=== PATIENT | male | born 1970 | race Caucasian/White ===

== ENCOUNTER 2024-02-25 02:36 | Observation (INO) | payer OTHER ==
[~2024-02-25] VITALS: Ht 167.6 cm; Wt 91.2 kg
[2024-02-25] MEDS: MECLIZINE 25 MG TABLET PO ONE (03:17)
[2024-02-25] MEDS: hydrALAZINE 20MG/ML 1ML VIAL IV ONE (03:18)
[2024-02-25 03:27] LABS: BASO # 0.1 10^3/uL (0.0-0.2); BASO % 0.6 % (0.0-1.0); EOS # 0.2 10^3/uL (0.0-0.5); EOS % 2.4 % (0.0-3.0); HEMATOCRIT 46.5 % (42.0-52.0); HEMOGLOBIN 14.9 g/dl (13.5-17.5); LYMPH # 1.6 10^3/uL (1.5-5.0); LYMPH % 19.8 % (24.0-44.0); MEAN CORPUSCULAR VOLUME 84.2 fl (80.0-96.0); MONO # 0.7 10^3/uL (0.0-0.8); MONO % 8.6 % (2.0-8.0); NEUTROPHILS # 5.6 10^3/uL (1.5-8.5); NEUTROPHILS % 68.5 % (36.0-66.0); PLATELET COUNT, AUTOMATED 292 10^3/uL (150-450); RED BLOOD COUNT 5.52 10^6/uL (4.30-6.10); WHITE BLOOD COUNT 8.2 10^3/uL (4.0-10.0)
[2024-02-25 03:48] LABS: LIPASE 52 U/L (12-53)
[2024-02-25 03:51] LABS: ALBUMIN 3.5 G/DL (3.2-5.2); ALKALINE PHOSPHATASE 127 U/L (46-116); ALT/SGPT 15 U/L (7.0-40); AST/SGOT 13 U/L (<34); BILIRUBIN,DIRECT 0.2 MG/DL (<0.4); BILIRUBIN,TOTAL 0.5 MG/DL (0.3-1.2); BLOOD UREA NITROGEN 20 MG/DL (9-23); CALCIUM LEVEL 8.9 MG/DL (8.5-10.1); CARBON DIOXIDE LEVEL 28 MMOL/L (20-31); CHLORIDE LEVEL 104 MMOL/L (98-107); CK-MB VALUE MASS 1.8 NG/ML (<3.6); GLOMERULAR FILTRATION RATE > 60.0 (>56); GLUCOSE, FASTING 124 MG/DL (60-100); POTASSIUM SERUM 3.6 MMOL/L (3.5-5.1); SODIUM LEVEL 139 MMOL/L (136-145); TOTAL PROTEIN 7.2 G/DL (5.7-8.2)
[2024-02-25] MEDS: LABETALOL 100MG/20ML VIAL IV STA (04:12)
[2024-02-25 04:20] LABS: CPK CREATINE PHOSPHOKINASE 91 U/L (46-171); MB/CK RELATIVE INDEX 1.97 (< OR =4)
[2024-02-25] MEDS ORDERED: NORV5TAB PO (05:38)
[2024-02-25] MEDS ORDERED: MECL-86 PO (05:38)
[2024-02-25 05:53] LABS: CK-MB VALUE MASS 1.8 NG/ML (<3.6); MB/CK RELATIVE INDEX 2.04 (< OR =4)
[2024-02-25] MEDS ORDERED: ACETAMINOPHEN TAB 650MG DOSE (2X325MG) PO PRN (06:05)
[2024-02-25] MEDS ORDERED: MECLIZINE 25 MG TABLET PO PRN (06:05)
[2024-02-25] MEDS ORDERED: GLUCAGON INJ 1MG VIAL SC PRN (06:25)
[2024-02-25] MEDS ORDERED: DEXTROSE 50% 50ML SYRINGE IV PRN (06:25)
[2024-02-25] MEDS ORDERED: GLUCOSE 4 GM CHEW PO PRN (06:25)
[2024-02-25] MEDS: LORazepam 1 MG TAB PO ONE (06:49)
[2024-02-25] MEDS: METOPROLOL TART 25 MG TABLET PO ONE (06:50)
[2024-02-25] MEDS: ASPIRIN 81MG CHEW TABLET PO SCH (06:50)
[2024-02-25] MEDS: INSULIN LISPRO (NovoLOG) PER UNIT SC SCH (07:30)
[2024-02-25] MEDS ORDERED: HOME MED LIST COMPLETE! XX SCH (08:10)
[2024-02-25] MEDS: hydroCHLOROthiazide 12.5 MG CAPSULE PO SCH (09:04)
[2024-02-25 12:53] VITALS: BP 138/81; O2SAT 95
[2024-02-25 14:00] VITALS: BP 155/87; TEMP 97.2; O2SAT 95
[2024-02-25] MEDS: METOPROLOL TART 25 MG TABLET PO SCH (20:45)
[2024-02-26 06:00] VITALS: BP 156/83; TEMP 98.1; O2SAT 95
[2024-02-26 06:32] LABS: BLOOD UREA NITROGEN 16 MG/DL (9-23); CALCIUM LEVEL 9.2 MG/DL (8.5-10.1); CARBON DIOXIDE LEVEL 28 MMOL/L (20-31); CHLORIDE LEVEL 105 MMOL/L (98-107); CHOLESTEROL LEVEL 163 MG/DL (<200); CHOLESTEROL RISK RATIO 5.24 (<5); CREATININE FOR GFR 0.99 MG/DL (0.70-1.30); GLOMERULAR FILTRATION RATE > 60.0 (>56); GLUCOSE, FASTING 130 MG/DL (60-100); HDL CHOLESTEROL 31.1 MG/DL (>40); LDL CHOLESTEROL 115.1 MG/DL (<100); NON-HDL-C 131.9 MG/DL; POTASSIUM SERUM 3.6 MMOL/L (3.5-5.1); SODIUM LEVEL 140 MMOL/L (136-145); TRIGLYCERIDES LEVEL 84 MG/DL (<150)
[2024-02-26] MEDS ORDERED: HOME MED LIST COMPLETE! XX SCH (07:50)
[2024-02-26] MEDS: ENOXAPARIN 40MG/0.4ML SYRINGE (J1650 PER 10MG) SC SCH (08:01)
[2024-02-26 14:00] VITALS: BP 139/87; TEMP 97; O2SAT 96
[2024-02-26] MEDS ORDERED: PILL CUTTER 1 EACH XX PRN (16:35)
[2024-02-26 20:20] VITALS: BP 189/98; TEMP 98.1
[2024-02-26] MEDS: **hydrALAZINE** 10 MG TAB PO SCH (20:23)
[2024-02-26] MEDS: INSULIN LISPRO (NovoLOG) PER UNIT SC SCH (21:00)
[2024-02-26 21:58] VITALS: BP 147/86; O2SAT 96
[2024-02-27 05:42] VITALS: BP 159/87; TEMP 97.6; O2SAT 96
[2024-02-27 06:56] LABS: HEMOGLOBIN A1c 5.4 % (4.0-6.0)
[2024-02-27 08:53] VITALS: BP 157/88
[2024-02-27] MEDS ORDERED: AMLO1TAB25 PO (10:08)
[2024-02-27] MEDS ORDERED: HYDR25TA87 PO (10:08)
[2024-02-27] MEDS ORDERED: BLOOMIS12 XX (10:08)
[2024-02-27] MEDS ORDERED: METO1TAB87 PO (10:08)
[2024-02-27] MEDS ORDERED: ASPI81CH8 PO (10:08)
[2024-02-27] MEDS ORDERED: ATOR1TAB21 PO (10:08)
[2024-02-27] MEDS ORDERED: MECL-86 PO (10:11)
[2024-02-27] MEDS ORDERED: **hydrALAZINE HCL** 25 MG TAB PO SCH (14:00)
[2024-02-27] MEDS ORDERED: ATORVASTATIN 20 MG TAB PO SCH (21:00)
== END 2024-02-27 13:13 | disposition home or self-care (01) ==
LOC: M ED 02:36 → M ED INP 02:37 → ENRESERV 11:45 → M MSPAV 12:16
PROVIDERS: ADMIT Internal Medicine; ATTEND Student in an Organized Health Care Education/Training Program
DX: I16.0 Hypertensive urgency (principal); H81.10 Benign paroxysmal vertigo, unspecified ear; R00.0 Tachycardia, unspecified; R94.31 Abnormal electrocardiogram [ECG] [EKG]; E78.5 Hyperlipidemia, unspecified; E11.9 Type 2 diabetes mellitus without complications; Z86.19 Personal history of other infectious and parasitic diseases; G47.33 Obstructive sleep apnea (adult) (pediatric); Z98.84 Bariatric surgery status; R07.9 Chest pain, unspecified; Z82.49 Family history of ischemic heart disease and other diseases of the circulatory system
CPT/HCPCS: 36415; 70450; 71045; 80048; 80053; 80061; 80076; 82550; 82553; 83036; 83690; 84484; 85025; 93005; 93041; 94760; 96372; 96374; 96375; 97112; 97161; 99285; J0360; J1650; J1815; J1920

== ENCOUNTER 2024-03-29 17:37 | Emergency (ER) | payer OTHER ==
[~2024-03-29] VITALS: Ht 167.6 cm; Wt 86.4 kg
[~2024-03-29 17:37] MED LIST: AMLO1TAB25 PO; ASPI81CH8 PO; ATOR1TAB21 PO; BLOOMIS12 XX; HYDR25TA87 PO; MECL-86 PO; METO1TAB87 PO; NORV5TAB PO
[2024-03-29] MEDS ORDERED: CIPR250T3 PO (17:54)
[2024-03-29 18:24] LABS: BASO # 0.1 10^3/uL (0.0-0.2); BASO % 0.8 % (0.0-1.0); EOS # 0.2 10^3/uL (0.0-0.5); EOS % 2.3 % (0.0-3.0); HEMATOCRIT 44.6 % (42.0-52.0); HEMOGLOBIN 14.4 g/dl (13.5-17.5); LYMPH # 1.4 10^3/uL (1.5-5.0); LYMPH % 15.7 % (24.0-44.0); MEAN CORPUSCULAR HEMOGLOBIN 26.9 pg (27.0-33.0); MEAN CORPUSCULAR HGB CONC 32.3 g/dl (32.0-36.5); MEAN CORPUSCULAR VOLUME 83.4 fl (80.0-96.0); MONO # 0.6 10^3/uL (0.0-0.8); MONO % 6.5 % (2.0-8.0); NEUTROPHILS # 6.7 10^3/uL (1.5-8.5); NEUTROPHILS % 74.4 % (36.0-66.0); PLATELET COUNT, AUTOMATED 309 10^3/uL (150-450); RED BLOOD COUNT 5.35 10^6/uL (4.30-6.10)
[2024-03-29 18:55] LABS: URIC ACID 6.6 MG/DL (3.7-9.2)
[2024-03-29 18:58] LABS: BLOOD UREA NITROGEN 21 MG/DL (9-23); CALCIUM LEVEL 9.2 MG/DL (8.5-10.1); CARBON DIOXIDE LEVEL 28 MMOL/L (20-31); CHLORIDE LEVEL 105 MMOL/L (98-107); CREATININE FOR GFR 1.17 MG/DL (0.70-1.30); GLOMERULAR FILTRATION RATE > 60.0 (>56); GLUCOSE, FASTING 101 MG/DL (60-100); POTASSIUM SERUM 4.1 MMOL/L (3.5-5.1); SODIUM LEVEL 139 MMOL/L (136-145)
[2024-03-29 22:34] VITALS: BP 188/118
[2024-03-29] MEDS: METOPROLOL TART 25 MG TABLET PO ONE (22:34)
[2024-03-29] MEDS: **hydrALAZINE HCL** 25 MG TAB PO ONE (22:34)
[2024-03-29] MEDS: predniSONE 20 MG TAB PO ONE (22:48)
[2024-03-29] MEDS: NAPROXEN 250 MG TAB PO ONE (22:48)
[2024-03-29] MEDS ORDERED: PRED20TA PO (22:56)
[2024-03-29] MEDS ORDERED: MELO7.5T35 PO (22:56)
[2024-03-29 23:28] VITALS: BP 158/90; TEMP 97.8; O2SAT 98
[2024-03-29] MEDS ORDERED: AMLO1TAB25 PO (23:39)
[2024-03-29] MEDS ORDERED: HYDR25TA87 PO (23:39)
[2024-03-29] MEDS ORDERED: METO1TAB87 PO (23:39)
== END 2024-03-29 23:40 | disposition home or self-care (01) ==
LOC: M ED 17:37
DX: M25.461 Effusion, right knee (principal); E11.9 Type 2 diabetes mellitus without complications; I10 Essential (primary) hypertension; E78.5 Hyperlipidemia, unspecified; M10.9 Gout, unspecified; Z98.84 Bariatric surgery status; Z79.899 Other long term (current) drug therapy; Z79.82 Long term (current) use of aspirin
CPT/HCPCS: 36415; 73564; 80048; 83605; 84550; 85025; 85652; 86140; 87040; 93971; 99284; J7512

== ENCOUNTER 2024-12-13 16:34 | Emergency (ER) | payer MEDICAID, OTHER, SELFPAY ==
[~2024-12-13] VITALS: Ht 165.1 cm; Wt 97.1 kg
[~2024-12-13 16:34] MED LIST changes: +CIPR250T3 PO; +MELO7.5T35 PO; +PRED20TA PO
[2024-12-13 16:37] VITALS: TEMP 98.7
[2024-12-13 18:10] LABS: BASO # 0.1 10^3/uL (0.0-0.2); BASO % 0.6 % (0.0-1.0); EOS # 0.2 10^3/uL (0.0-0.5); EOS % 1.6 % (0.0-3.0); HEMATOCRIT 46.5 % (42.0-52.0); LYMPH # 1.7 10^3/uL (1.5-5.0); LYMPH % 17.5 % (24.0-44.0); MEAN CORPUSCULAR HEMOGLOBIN 25.5 pg (27.0-33.0); MEAN CORPUSCULAR HGB CONC 32.3 g/dl (32.0-36.5); MEAN CORPUSCULAR VOLUME 79.1 fl (80.0-96.0); MONO # 0.8 10^3/uL (0.0-0.8); MONO % 8.1 % (2.0-8.0); NEUTROPHILS # 7.1 10^3/uL (1.5-8.5); NEUTROPHILS % 71.9 % (36.0-66.0); PLATELET COUNT, AUTOMATED 332 10^3/uL (150-450); RED BLOOD COUNT 5.88 10^6/uL (4.30-6.10); WHITE BLOOD COUNT 9.8 10^3/uL (4.0-10.0)
[2024-12-13 18:24] LABS: INR 1.05; PARTIAL THROMBOPLASTIN TIME 28.5 SECONDS (24.8-34.2); PROTHROMBIN TIME 14.1 SECONDS (12.5-14.5)
[2024-12-13] MEDS ORDERED: ISOVUE-370 76% 100ML VIAL As Ordered ONE (18:38)
[2024-12-13 18:43] LABS: CK-MB VALUE MASS 3.8 NG/ML (<3.6)
[2024-12-13 18:46] LABS: FREE T4 1.14 NG/DL (0.89-1.76)
[2024-12-13 18:47] LABS: ALBUMIN 3.3 G/DL (3.2-5.2); ALKALINE PHOSPHATASE 106 U/L (40-129); ALT/SGPT 24 U/L (7.0-40); AST/SGOT 16 U/L (<34); BILIRUBIN,DIRECT 0.2 MG/DL (<0.4); BILIRUBIN,TOTAL 0.8 MG/DL (0.3-1.2); BLOOD UREA NITROGEN 13 MG/DL (9-23); CALCIUM LEVEL 8.6 MG/DL (8.5-10.1); CARBON DIOXIDE LEVEL 27 MMOL/L (20-31); CHLORIDE LEVEL 107 MMOL/L (98-107); CPK CREATINE PHOSPHOKINASE 100 U/L (46-171); CREATININE FOR GFR 1.11 MG/DL (0.70-1.30); GLOMERULAR FILTRATION RATE > 60.0 (>56); GLUCOSE, FASTING 115 MG/DL (60-100); POTASSIUM SERUM 3.4 MMOL/L (3.5-5.1); SODIUM LEVEL 140 MMOL/L (136-145); THYROID STIMULATING HORMONE 1.441 uIU/ML (0.55-4.78); TOTAL PROTEIN 7.3 G/DL (5.7-8.2)
[2024-12-13] MEDS: LABETALOL 100MG/20ML VIAL IV STA ×2 (19:31→20:22)
[2024-12-13 20:08] LABS: CK-MB VALUE MASS 2.8 NG/ML (<3.6)
[2024-12-13] MEDS: POTASSIUM CHLORIDE 10MEQ SR TABLET PO ONE (20:21)
[2024-12-13 20:22] VITALS: BP 215/102
[2024-12-13 20:23] LABS: MB/CK RELATIVE INDEX 2.85 (< OR =4)
[2024-12-13] MEDS: ASPIRIN 81MG CHEW TABLET PO ONE (20:54)
[2024-12-13] MEDS: CLOPIDOGREL 75 MG TAB PO ONE (20:55)
[2024-12-14] VITALS: BP 194/88; O2SAT 96
[2024-12-14 00:52] LABS: RSV AMPLIFICATION NEGATIVE (NEGATIVE)
== END 2024-12-14 00:26 | disposition short-term general hospital (02) ==
LOC: M ED 16:34
DX: I65.1 Occlusion and stenosis of basilar artery (principal); I63.9 Cerebral infarction, unspecified; I61.9 Nontraumatic intracerebral hemorrhage, unspecified; I10 Essential (primary) hypertension
CPT/HCPCS: 70450; 70496; 70498; 70544; 70551; 71046; 80048; 80076; 82550; 82553; 84439; 84443; 84484; 85025; 85610; 85730; 87631; 93005; 93041; 94760; 96374; 96376; 99285; J1920; Q9967

== ENCOUNTER → 2025-01-06 | Outpatient (REF) | payer MEDICAID ==
[2025-01-06 15:18] LABS: ALBUMIN 3.7 G/DL (3.2-5.2); ALKALINE PHOSPHATASE 106 U/L (40-129); ALT/SGPT 30 U/L (7.0-40); AST/SGOT 21 U/L (<34); BILIRUBIN,TOTAL 1.1 MG/DL (0.3-1.2); BLOOD UREA NITROGEN 17 MG/DL (9-23); CALCIUM LEVEL 9.1 MG/DL (8.5-10.1); CARBON DIOXIDE LEVEL 27 MMOL/L (20-31); CHLORIDE LEVEL 106 MMOL/L (98-107); CHOLESTEROL LEVEL 104 MG/DL (<200); CHOLESTEROL RISK RATIO 2.75 (<5); CREATININE FOR GFR 1.07 MG/DL (0.70-1.30); GLOMERULAR FILTRATION RATE > 60.0 (>56); GLUCOSE, FASTING 96 MG/DL (60-100); HDL CHOLESTEROL 37.7 MG/DL (>40); LDL CHOLESTEROL 54.3 MG/DL (<100); NON-HDL-C 66.3 MG/DL; POTASSIUM SERUM 4.1 MMOL/L (3.5-5.1); SODIUM LEVEL 141 MMOL/L (136-145); THYROID STIMULATING HORMONE 1.033 uIU/ML (0.55-4.78); TOTAL PROTEIN 7.6 G/DL (5.7-8.2); TRIGLYCERIDES LEVEL 60 MG/DL (<150)
== END ==
LOC: M LAB REF 12:33
PROVIDERS: ATTEND Nurse Practitioner Family
DX: I25.10 Atherosclerotic heart disease of native coronary artery without angina pectoris (principal); E66.9 Obesity, unspecified